=== PATIENT | male | born 1930 | race Caucasian/White ===

== ENCOUNTER 2016-11-20 13:30 | Outpatient (CLI) | payer MEDICARE, OTHER | END 2016-11-20 13:31 | DX: N50.819 Testicular pain, unspecified (principal); N40.1 Benign prostatic hyperplasia with lower urinary tract symptoms ==

== ENCOUNTER 2017-05-19 17:40 | Outpatient (CLI) | payer MEDICARE, OTHER ==
[2017-05-19 13:15] LABS: BASOPHILS # (AUTO) 0.1 10^3/uL (0.0-0.1); BASOPHILS % (AUTO) 1.2 %; EOSINOPHILS # (AUTO) 0.2 10^3/uL (0.0-0.7); EOSINOPHILS % (AUTO) 5.4 %; HCT - HEMATOCRIT 41.9 % (42.0-52.0); HGB - HEMOGLOBIN 13.8 g/dL (14.0-18.0); LYMPHOCYTES # (AUTO) 1.1 10^3/uL (1.5-3.5); LYMPHOCYTES % (AUTO) 27.3 %; MEAN CORPUSCULAR HEMOGLOBIN 30.5 pg (27.0-31.0); MEAN CORPUSCULAR HGB CONC 32.9 g/dL (32.0-36.0); MEAN CORPUSCULAR VOLUME 92.5 fL (80.0-94.0); MEAN PLATELET VOLUME 9.2 fL (7.4-11.4); MONOCYTES # (AUTO) 0.7 10^3/uL (0.0-1.0); MONOCYTES % (AUTO) 16.5 %; NEUTROPHILS % (AUTO) 49.6 %; PSA FREE 0.99 ng/mL (0.16-2.81); RED BLOOD COUNT 4.52 10^6/uL (4.70-6.10); RED CELL DISTRIBUTION WIDTH 13.4 % (12.0-15.0); UNCORRECTED WHITE BLOOD COUNT 4.1 x10^3/uL; WHITE BLOOD COUNT 4.1 x10^3/uL (4.8-10.8)
[2017-05-19 13:16] LABS: PSA TOTAL 4.42 ng/mL (0.000-2.000)
[2017-05-19 13:22] LABS: ALBUMIN/GLOBULIN RATIO 1.2 (1.0-2.2); BILIRUBIN,TOTAL 0.9 mg/dL (0.2-1.0); BUN - BLOOD UREA NITROGEN 15 mg/dL (6-20); CALCIUM 8.9 mg/dL (8.5-10.3); CARBON DIOXIDE - CO2 23 mmol/L (21-32); CHLORIDE 106 mmol/L (101-111); CHOL/HDL RATIO 4.9 (<5.0); CHOLESTEROL 225 mg/dL; CREATININE 1.2 mg/dL (0.6-1.2); GFR - MDRD 57 (>89); GLUCOSE 108 mg/dL (70-100); HDL CHOLESTEROL 46 mg/dL; LDL/HDL RATIO 3.1 (<3.6); SODIUM 137 mmol/L (135-145); TOTAL PROTEIN 7.1 g/dL (6.7-8.2); TRIGLYCERIDES 178 mg/dL; VLDL CHOLESTEROL 36 mg/dL
== END 2017-05-19 17:41 | disposition home or self-care (01) ==
LOC: LAB.WCP 17:40
PROVIDERS: ATTEND Family Medicine
DX: I10 Essential (primary) hypertension (principal)
CPT/HCPCS: 36415; 80053; 80061; 84154; 84443; 85025

== ENCOUNTER 2017-12-29 16:58 | Emergency (ER) | payer MEDICARE, OTHER ==
--- NOTE | 2017-12-29 17:27 | ED Physician Documentation ---
PD HPI CHEST PAIN - Stated complaint Stated Complaint: ELEV BP - Chief complaint Chief Complaint: General - History obtained from History obtained from: Patient - History of Present Illness Timing - onset: How many days ago (he has noted some episodes of trouble breathing, comes and goes. Not related to position nor exertion per se. Has had some baseline level of dyspnea as well. Has had this in the past related to allergies. He took his BP today with the dyspnea and noted it very elevated. Called PMD and referred to ED. He says he has had some increased BP in past 1-2 months, and so resumed his Micardis about 2-3 weeks ago and his BP was doing better. he says last week had 2 times he checked it and was 120-130 systolic. Had one time it was 114 and he felt a little lightheaded with standing while gardening.) Timing - onset during: Light activity Timing - details: Gradual onset, Still present Quality: Tightness. No: Sharp, Tearing, Pain Location: Substernal, Left chest Radiation: Left upper extremity Worsened by: No: Exertion, Inspiration Associated symptoms: Shortness of air, Feeling faint / dizzy. No: Nausea, Vomiting, General Weakness, Palpitations, Cough Similar symptoms before: Has not had sx before Recently seen: Not recently seen PD PAST MEDICAL HISTORY - Past Medical History Cardiovascular: Hypertension, High cholesterol Respiratory: None Neuro: None Endocrine/Autoimmune: None GI: GERD : Benign prostate hypertrophy HEENT: None Psych: None Musculoskeletal: Osteoarthritis, Chronic back pain Derm: None - Past Surgical History General: Appendectomy Ortho: Other HEENT: Cataracts - Present Medications Home Medications: Ambulatory Orders Medication Instructions Recorded Confirmed Aspirin [Aspir 81] 81 mg DAILY 05/15/14 05/15/14 Finasteride 5 mg ORAL DAILY 05/15/14 05/15/14 Esomeprazole Magnesium [Nexium] 40 mg ORAL DAILY 05/16/14 05/16/14 Atenolol [Tenormin] 25 mg PO DAILY 12/04/15 12/04/15 Lisinopril [Zestril] 40 mg PO DAILY 12/04/15 12/04/15 amLODIPine [Norvasc] 5 mg PO DAILY 12/04/15 12/04/15 Albuterol Sulf [Ventolin Hfa 1 - 2 puffs INH Q4HR PRN #1 inhaler 12/29/17 Inhaler] - Allergies Allergies/Adverse Reactions: Allergies Allergy/AdvReac Type Severity Reaction Status Date / Time No Known Drug Allergies Allergy Verified 12/29/17 17:12 - Living Situation Living Situation: reports: With spouse/s.o. Living Arrangement: reports: At home - Social History Does the pt smoke?: No Does the pt drink ETOH?: No Does the pt have substance abuse?: No - Family History Family history: reports: Non contributory PD ED PE NORMAL - Vitals Vital signs reviewed: Yes - General General: Alert and oriented X 3, Well developed/nourished - HEENT HEENT: Ears normal, Moist mucous membranes, Pharynx benign - Neck Neck: Supple, no meningeal sign, No adenopathy, No JVD - Cardiac Cardiac: RRR - Respiratory Respiratory: No: Clear bilaterally (some scattered wheezing noted. ) Results - Vitals Vitals: Vital Signs - 24 hr 12/29/17 12/29/17 12/29/17 17:08 17:19 18:01 Temperature 36.7 C Heart Rate 73 67 Respiratory 18 18 Rate Blood Pressure 224/179 H 216/85 H 185/95 H O2 Saturation 96 12/29/17 12/29/17 12/29/17 18:16 18:37 19:16 Temperature Heart Rate 73 65 66 Respiratory 18 23 20 Rate Blood Pressure 169/99 H 158/89 H 160/82 H O2 Saturation 94 98 96 12/29/17 19:37 Temperature 36.8 C Heart Rate 68 Respiratory 20 Rate Blood Pressure 161/88 H O2 Saturation 97 Oxygen O2 Source Room air - EKG (time done) 17:11 Rate: Rate (enter#) (77) Rhythm: NSR [place]: Normal Intervals: Normal [place] QRS: Normal Ischemia: Normal ST segments. No: ST elevation c/w ischemia, ST depression - Labs Labs: Laboratory Tests 12/29/17 12/29/17 12/29/17 17:40 17:40 17:40 WBC 5.7 RBC 4.81 Hgb 14.5 Hct 43.4 MCV 90.3 MCH 30.1 MCHC 33.4 RDW 13.2 Plt Count 181 MPV 9.2 Neut # 2.6 Lymph # 1.7 [place] # 0.8 Eos # 0.6 Baso # 0.1 Absolute Nucleated RBC 0.00 Nucleated RBC % 0.1 Sodium 135 Potassium 4.0 Chloride 105 Carbon Dioxide 22 Anion Gap 8.0 BUN 21 H Creatinine 1.2 Estimated GFR (MDRD) 57 L Glucose 91 Calcium 9.2 Magnesium 2.2 Total Bilirubin 0.6 AST 29 ALT 18 Alkaline Phosphatase 70 Troponin I < 0.04 B-Natriuretic Peptide Total Protein 7.9 Albumin 4.3 Globulin 3.6 Albumin/Globulin Ratio 1.2 Lipase 21 L 12/29/17 17:40 WBC RBC Hgb Hct MCV MCH MCHC RDW Plt Count MPV Neut # Lymph # [place] # Eos # Baso # Absolute Nucleated RBC Nucleated RBC % Sodium Potassium Chloride Carbon Dioxide Anion Gap BUN Creatinine Estimated GFR (MDRD) Glucose Calcium Magnesium Total Bilirubin AST ALT Alkaline Phosphatase Troponin I B-Natriuretic Peptide 73 Total Protein Albumin Globulin Albumin/Globulin Ratio Lipase - Rads (name of study) chest Radiology: Prelim report reviewed, EMP read contemporaneously (no infiltrates, effusions nor CHF. Somewhat hyperinflated c/w airways disease. ) PD MEDICAL DECISION MAKING - ED course Complexity details: reviewed results, re-evaluated patient (BP was improving without treatment but was still elevated. Given some meds here for it. He says his BP was okay last week couple of times in the 120-130 systolic range. I don' t feel I want to change his usual med. Presume there was secondary process to elevate it today, such as the dyspnea. ), considered differential (sounding like some bronchospastic type process with some dyspnea at baseline and then worse at times, lasting minutes to 1/2 hour or so, then back to baseline. Not exertional per se. He is somewhat poor historian on dates and timeline, but sounds like has had reasonably good BP after resume Micardis 2 weeks ago, (had stopped it as he felt okay and BP was lower at times). Today with BP quite elevated, but he has not taken BP with other dyspnea episodes. Could be intermittent arrhythmias, bronchospastic episodes. Does not sound like CHF nor angina per se. ), d/w patient Departure - Departure Disposition: 01 Home, Self Care Clinical Impression: Elevated blood pressure reading Dyspnea Qualifiers: Dyspnea type: shortness of breath Qualified Code(s): R06.02 - Shortness of breath Condition: Stable Record reviewed to determine appropriate education?: Yes Instructions: ED Dyspnea Shortness of Breath Follow-Up: Arielle Pepper DO [Primary Care Provider] - Prescriptions: Albuterol Sulf [Ventolin Hfa Inhaler] 1 - 2 puffs INH Q4HR PRN #1 inhaler PRN Reason: Shortness Of Air/Wheezing Comments: Continue your Micardis at the current dosing. Check your blood pressure daily or perhaps twice daily for the next week and record it. I think your blood pressure spiraled out of control today with the adrenaline effect of having trouble breathing and was more the result of it rather than the cause. However it can then feedback on itself causing a higher pressure. More so I am wondering if your trouble breathing and episodes of worse breathing might be more lung related and I would suggest trying an albuterol inhaler 2 puffs 4 times a day for the next several days and also at times when you feel you are having more trouble breathing. See if this helps overall with your breathing. Call for a follow-up appointment with your primary care try to see them in about a week. Return if needed. Discharge Date/Time: 12/29/17 19:45
[2017-12-29] MEDS ORDERED: ACETAMINOPHEN 325 MG TABLET PO STA (17:52)
[2017-12-29] MEDS ORDERED: NITROGLYCERIN SL 0.4 MG TABLET SL STA (17:52)
[2017-12-29 17:58] LABS: BASOPHILS # (AUTO) 0.1 10^3/uL (0.0-0.1); BASOPHILS % (AUTO) 1.4 %; EOSINOPHILS # (AUTO) 0.6 10^3/uL (0.0-0.7); EOSINOPHILS % (AUTO) 10.4 %; HGB - HEMOGLOBIN 14.5 g/dL (14.0-18.0); LYMPHOCYTES # (AUTO) 1.7 10^3/uL (1.5-3.5); LYMPHOCYTES % (AUTO) 29.8 %; MEAN CORPUSCULAR HEMOGLOBIN 30.1 pg (27.0-31.0); MEAN CORPUSCULAR HGB CONC 33.4 g/dL (32.0-36.0); MEAN CORPUSCULAR VOLUME 90.3 fL (80.0-94.0); MEAN PLATELET VOLUME 9.2 fL (7.4-11.4); MONOCYTES # (AUTO) 0.8 10^3/uL (0.0-1.0); MONOCYTES % (AUTO) 13.5 %; NEUTROPHILS # (AUTO) 2.6 10^3/uL (1.5-6.6); NEUTROPHILS % (AUTO) 44.9 %; PLT - PLATELET COUNT 181 10^3/uL (130-450); RED BLOOD COUNT 4.81 10^6/uL (4.70-6.10); RED CELL DISTRIBUTION WIDTH 13.2 % (12.0-15.0); WHITE BLOOD COUNT 5.7 x10^3/uL (4.8-10.8)
[2017-12-29 18:10] LABS: ALBUMIN 4.3 g/dL (3.2-5.5); ALBUMIN/GLOBULIN RATIO 1.2 (1.0-2.2); BILIRUBIN,TOTAL 0.6 mg/dL (0.2-1.0); CALCIUM 9.2 mg/dL (8.5-10.3); CREATININE 1.2 mg/dL (0.6-1.2); MAGNESIUM 2.2 mg/dL (1.7-2.8); TOTAL PROTEIN 7.9 g/dL (6.7-8.2)
--- NOTE | 2017-12-29 18:37 | XRAY Report ---
EXAM: CHEST RADIOGRAPHY EXAM DATE: 12/29/2017 06:10 PM. CLINICAL HISTORY: Dyspnea and high blood pressure. COMPARISON: None. TECHNIQUE: 2 views. FINDINGS: Lungs/Pleura: Hyperexpanded with flattened diaphragm and coarse lung markings typical for COPD. No de finite localized infiltrate, consolidation, effusion, or pneumothorax. Mediastinum: Normal overall heart size. Upper lobe vessels not distended. Other: Degenerative changes. IMPRESSION: Chronic findings. No acute disease. [facility] Referring Provider Line: [phone] SITE ID: [id number]
[2017-12-29 19:37] VITALS: BP 161/88
== END 2017-12-29 19:45 | disposition home or self-care (01) ==
LOC: ED 16:58
DX: I10 Essential (primary) hypertension (principal); R06.02 Shortness of breath; E78.00 Pure hypercholesterolemia, unspecified; K21.9 Gastro-esophageal reflux disease without esophagitis; N40.0 Benign prostatic hyperplasia without lower urinary tract symptoms; M19.90 Unspecified osteoarthritis, unspecified site; Z79.82 Long term (current) use of aspirin
CPT/HCPCS: 36415; 71046; 80053; 83690; 83735; 83880; 84484; 85025; 93005; 99283; 99284; A9270

== ENCOUNTER 2018-02-05 13:28 | Emergency (ER) | payer MEDICARE, OTHER ==
--- NOTE | 2018-02-05 13:49 | ED Physician Documentation ---
PD HPI ABD PAIN - Stated complaint Stated Complaint: ABD PAIN - Chief complaint Chief Complaint: Abd Pain - History obtained from History obtained from: Patient - History of Present Illness Timing - onset: How many days ago (2) Timing - duration: Days (2) Timing - details: Abrupt onset (he was shoveling some compost/dirt and placing high on a pile when he slipped and fell against the end of the shovel handle, having his full weight land onto the butt end of the shovel into his epigastric area. Pain deeper and not so sore to the touch. Pain continues similar.), Still present Quality: Aching, Dull, Pain Location: Epigastric Radiation: Lower back Improved by: Laying still, Position Worsened by: Moving, Position. No: Breathing Associated symptoms: Nausea, Loss of appetite. No: Fever, Vomiting, Diarrhea, Dysuria, Near syncope / syncope Similar symptoms before: Has not had sx before Recently seen: Not recently seen Review of Systems Constitutional: denies: Fever, Chills Nose: denies: Rhinorrhea / runny nose, Congestion Throat: denies: Sore throat Cardiac: denies: Chest pain / pressure, Palpitations Respiratory: denies: Cough GI: reports: Abdominal Pain, Nausea. denies: Vomiting, Constipation, Diarrhea : denies: Dysuria, Frequency Skin: denies: Abrasion (s), Laceration (s) Musculoskeletal: denies: Extremity pain, Extremity swelling Neurologic: denies: Generalized weakness, Focal weakness, Numbness, Near syncope PD PAST MEDICAL HISTORY - Past Medical History Cardiovascular: Hypertension, High cholesterol Respiratory: None Neuro: None Endocrine/Autoimmune: None GI: GERD : Benign prostate hypertrophy HEENT: None Psych: None Musculoskeletal: Osteoarthritis, Chronic back pain Derm: None - Past Surgical History General: Appendectomy Ortho: Other HEENT: Cataracts - Present Medications Home Medications: Ambulatory Orders Medication Instructions Recorded Confirmed Aspirin [Aspir 81] 81 mg PO DAILY 05/15/14 02/05/18 Docusate Sodium [Dss] 250 mg PO DAILY #15 capsule 02/05/18 HYDROcod/ACETAM 5/325 [[place] 5/325] 1 tab PO Q6H PRN #20 tablet 02/05/18 Omeprazole 40 mg PO DAILY 02/05/18 02/05/18 Tamsulosin [Flomax] 0.4 mg PO DAILY 02/05/18 02/05/18 Telmisartan [Micardis] 80 mg PO DAILY 02/05/18 02/05/18 - Allergies Allergies/Adverse Reactions: Allergies Allergy/AdvReac Type Severity Reaction Status Date / Time No Known Drug Allergies Allergy Verified 02/05/18 13:49 - Living Situation Living Situation: reports: With spouse/s.o. Living Arrangement: reports: At home - Social History Does the pt smoke?: No Smoking Status: Never smoker Does the pt drink ETOH?: No Does the pt have substance abuse?: No - Family History Family history: reports: Non contributory PD ED PE NORMAL - Vitals Vital signs reviewed: Yes - General General: Alert and oriented X 3, No acute distress, Well developed/nourished ( vigorous appearing for age) - HEENT HEENT: Moist mucous membranes, Pharynx benign - Neck Neck: Supple, no meningeal sign, No adenopathy - Cardiac Cardiac: RRR, No murmur - Respiratory Respiratory: Clear bilaterally - Abdomen Abdomen: Normal bowel sounds, Soft, Non distended, No organomegaly, Other ( tender in epigastric area with slight local guarding, but no percussion, rebound nor referred tenderness. ) - Male Male : Deferred - Rectal Rectal: Deferred - Back Back: No CVA TTP - Derm Derm: Normal color, Warm and dry - Extremities Extremities: No deformity, No tenderness to palpate, No edema, No calf tenderness / cord - Neuro Neuro: Alert and oriented X 3, No motor deficit, Normal speech Results - Vitals Vitals: Vital Signs - 24 hr 02/05/18 02/05/18 02/05/18 13:39 16:52 17:07 Temperature 36.4 C L Heart Rate 99 78 Respiratory 18 16 Rate Blood Pressure 151/83 H 100/60 O2 Saturation 97 95 Oxygen O2 Source Room air - Labs Labs: Laboratory Tests 02/05/18 02/05/18 02/05/18 13:59 13:59 15:20 WBC 11.3 H RBC 4.47 L Hgb 13.7 L Hct 40.6 L MCV 90.9 MCH 30.7 MCHC 33.8 RDW 12.8 Plt Count 180 MPV 8.7 Neut # 8.4 H Lymph # 1.1 L [place] # 1.5 H Eos # 0.2 Baso # 0.1 Absolute Nucleated RBC 0.00 Nucleated RBC % 0.0 Sodium 125 L Potassium 3.7 Chloride 93 L Carbon Dioxide 23 Anion Gap 9.0 BUN 18 Creatinine 1.2 Estimated GFR (MDRD) 57 L Glucose 157 H Calcium 8.5 Total Bilirubin 0.9 AST 23 ALT 14 Alkaline Phosphatase 62 Total Protein 7.4 Albumin 3.8 Globulin 3.6 Albumin/Globulin Ratio 1.1 Lipase 40 Urine Color YELLOW Urine Clarity CLEAR Urine pH 7.0 Ur Specific [place] 1.010 Urine Protein 30 H Urine Glucose (UA) 100 H Urine Ketones NEGATIVE Urine Occult Blood NEGATIVE Urine Nitrite NEGATIVE Urine Bilirubin NEGATIVE Urine Urobilinogen 0.2 (NORMAL) Ur Leukocyte Esterase NEGATIVE Urine RBC 0-5 Urine WBC 0-3 Ur Squamous Epith Cells RARE Squamous Urine Bacteria None Seen Ur Microscopic Review INDICATED Urine Culture Comments NOT INDICATED - Rads (name of study) abd CT with contrast Radiology: Prelim report reviewed, Discussed with rads ([place] and Dr. Huang - pancreatic swelling around tail with edema. Consider occult mass/tumor incidentally picked up, or could be trauma/contusion instead, so suggest repeat imaging to check for resolution. No free fluid seen. ) PD MEDICAL DECISION MAKING - ED course Complexity details: considered differential, d/w patient, d/w audit consultant ( Radiologist, and in house Radiologist Dr. Huang, and also Dr. Maira Mcdowell, Surgery (who suggested repeat imaging soon with U/S, CT or MRI at discretion of Radiology).) Departure - Departure Disposition: 01 Home, Self Care Clinical Impression: Abdominal wall contusion Qualifiers: Encounter type: initial encounter Qualified Code(s): S30.1XXA - Contusion of abdominal wall, initial encounter Pancreatic injury Qualifiers: Encounter type: initial encounter Qualified Code(s): S36.209A - Unspecified injury of unspecified part of pancreas, initial encounter Condition: Stable Record reviewed to determine appropriate education?: Yes Instructions: Abdominal Pain Follow-Up: Tomasa Reis PA [Primary Care Provider] - Prescriptions: Docusate Sodium [Dss] 250 mg PO DAILY #15 capsule HYDROcod/ACETAM 5/325 [[place] 5/325] 1 tab PO Q6H PRN #20 tablet PRN Reason: Pain Comments: You have local swelling of the pancreas which is presumed from the injury. It would be good to see that that improves over the next week or 2. Follow-up with your primary care next Thursday as planned and see if they would arrange an outpatient CT scan or MRI of the abdomen to recheck that. The radiologist I talked to did not feel ultrasound would see it adequately. We want to make sure there was not a coincidental other problem with the pancreas that happened to be found on the scan today. Your pancreas and liver blood tests are good, so does not appear to be infection or inflammation of the pancreas, but just local swelling. You can use Tylenol or ibuprofen if needed for pains. Add hydrocodone if needed for worse pain. Drink lots of fluids. Take a daily stool softener for the next week or 2 so you do not get constipated from the pain medicine. Return sooner if worsening symptoms. Discharge Date/Time: 02/05/18 17:07
[2018-02-05 14:04] LABS: BASOPHILS # (AUTO) 0.1 10^3/uL (0.0-0.1); BASOPHILS % (AUTO) 0.8 %; EOSINOPHILS # (AUTO) 0.2 10^3/uL (0.0-0.7); EOSINOPHILS % (AUTO) 2.1 %; HGB - HEMOGLOBIN 13.7 g/dL (14.0-18.0); LYMPHOCYTES # (AUTO) 1.1 10^3/uL (1.5-3.5); LYMPHOCYTES % (AUTO) 9.6 %; MEAN CORPUSCULAR HEMOGLOBIN 30.7 pg (27.0-31.0); MEAN CORPUSCULAR HGB CONC 33.8 g/dL (32.0-36.0); MEAN CORPUSCULAR VOLUME 90.9 fL (80.0-94.0); MEAN PLATELET VOLUME 8.7 fL (7.4-11.4); MONOCYTES # (AUTO) 1.5 10^3/uL (0.0-1.0); MONOCYTES % (AUTO) 12.9 %; NEUTROPHILS # (AUTO) 8.4 10^3/uL (1.5-6.6); NEUTROPHILS % (AUTO) 74.6 %; PLT - PLATELET COUNT 180 10^3/uL (130-450); RED BLOOD COUNT 4.47 10^6/uL (4.70-6.10); RED CELL DISTRIBUTION WIDTH 12.8 % (12.0-15.0); WHITE BLOOD COUNT 11.3 x10^3/uL (4.8-10.8)
[2018-02-05] MEDS ORDERED: KETOROLAC 60 MG/2 ML VIAL IVP STA (14:09)
[2018-02-05] MEDS ORDERED: ACETAMINOPHEN 325 MG TABLET PO STA (14:11)
[2018-02-05 14:16] LABS: ALBUMIN 3.8 g/dL (3.2-5.5); ALBUMIN/GLOBULIN RATIO 1.1 (1.0-2.2); BILIRUBIN,TOTAL 0.9 mg/dL (0.2-1.0); CALCIUM 8.5 mg/dL (8.5-10.3); CREATININE 1.2 mg/dL (0.6-1.2); TOTAL PROTEIN 7.4 g/dL (6.7-8.2)
[2018-02-05] MEDS ORDERED: IOPAMIDOL-300 100 ML VIAL ONE (14:28)
[2018-02-05] MEDS ORDERED: IOPAMIDOL-300 100 ML VIAL IVP ONE (14:53)
--- NOTE | 2018-02-05 15:22 | CT Preliminary Report ---
Exam: CT ABDOMEN/PELVIS W/ IMPRESSION: 1. Chronic lung disease. 2. No acute posttraumatic abnormality. 3. 3.6 x 2.5 x 3.0 cm mass or focal pancreatitis involving the pancreatic tail. Adjacent edema and ad enopathy. Findings not likely due to recent trauma unless the focal trauma was in the left upper quad rant rather then the right upper quadrant as per history. 4. Significant retroperitoneal and periportal adenopathy. This is worrisome for metastatic disease. 5. Colonic diverticulosis. [facility] SITE ID: [id number]
[2018-02-05 15:31] LABS: BILIRUBIN,URINE NEGATIVE (NEGATIVE); GLUCOSE, URINE (UA) 100 mg/dL (NEGATIVE); KETONES,URINE (UA) NEGATIVE (NEGATIVE); LEUKOCYTE ESTERASE, URINE NEGATIVE (NEGATIVE); NITRITE,URINE NEGATIVE (NEGATIVE); OCCULT BLOOD,URINE NEGATIVE (NEGATIVE); PROTEIN,URINE 30 mg/dL (NEGATIVE); UROBILINOGEN,URINE 0.2 (NORMAL) E.U./dL (NORMAL)
--- NOTE | 2018-02-05 15:32 | CT Report ---
EXAM: CT ABDOMEN AND PELVIS EXAM DATE: 02/05/2018 02:54 PM. CLINICAL HISTORY: Prior appendectomy. Struck in right upper abdomen with shovel handle 3 days ago. Pe rsistent pain since then. COMPARISONS: 02/09/2007. TECHNIQUE: Routine helical CT imaging was performed through the abdomen and pelvis. IV contrast: ISOV UE 300 100mL. Enteric contrast: No. Reconstructions: Coronal and sagittal. In accordance with CT protocol optimization, one or more of the following dose reduction techniques w ere utilized for this exam: automated exposure control, adjustment of mA and/or KV based on patient s ize, or use of iterative reconstructive technique. FINDINGS: Lung Bases: Emphysematous changes. Liver: Increased caliber of a 6 mm low-density left lobe liver, previously 3 mm, consistent with cyst s. Liver is otherwise unremarkable. Gallbladder/Bile Ducts: Unremarkable. Spleen: Normal. Pancreas: Interval development of a 3.6 x 2.5 x 3 cm inhomogeneous mass or focal pancreatic phlegmon at the tail. 3 cm rim of edema surrounding this region as well as focal lymph nodes, best appreciated on axial image 27. Moderate to marked fatty atrophy of the rest of the pancreas. No pancreatic duct dilatation. Adrenal Glands: Normal. Kidneys: Normal. Small bilateral peripelvic cysts. No masses or hydronephrosis. Peritoneal Cavity/Bowel: Diverticuli off the colon. Large and small bowel normal caliber. Multiple new mild and moderately enlarged retroperitoneal lymph nodes and periportal lymph nodes. No free air. Appendectomy. Pelvic Organs: 5 x 3 cm non-entrapped right fat filled inguinal hernia. Vasculature: No aneurysms or other significant abnormality. Bones: No significant abnormality. No bony metastatic disease. Other: None. IMPRESSION: 1. Chronic lung disease. 2. No acute posttraumatic abnormality. 3. 3.6 x 2.5 x 3.0 cm mass or focal pancreatitis involving the pancreatic tail. Adjacent edema and ad enopathy. Findings not likely due to recent trauma unless the focal trauma was in the left upper quad rant rather then the right upper quadrant as per history. 4. Significant retroperitoneal and periportal adenopathy. This is worrisome for metastatic disease. 5. Colonic diverticulosis. [facility] Referring Provider Line: [phone] SITE ID: [id number]
[2018-02-05 16:00] LABS: CLARITY,URINE CLEAR (CLEAR)
[2018-02-05 16:03] LABS: BACTERIA,URINE None Seen /HPF (None Seen); RBC,URINE 0-5 /HPF (0-5); SQUAMOUS EPITHELIAL CELL,UR RARE Squamous (<= Few)
[2018-02-05] MEDS ORDERED: MORPHINE 10 MG/ML VIAL IVP STA (16:25)
[2018-02-05] MEDS ORDERED: ONDANSETRON 4 MG/2 ML VIAL IVP STA (16:25)
[2018-02-05 17:08] VITALS: BP 100/60
== END 2018-02-05 17:07 | disposition home or self-care (01) ==
LOC: ED 13:28
DX: I10 Essential (primary) hypertension (principal); Z79.82 Long term (current) use of aspirin; S30.1XXA Contusion of abdominal wall, initial encounter; S36.229A Contusion of unspecified part of pancreas, initial encounter; W27.1XXA Contact with garden tool, initial encounter; Y93.H1 Activity, digging, shoveling and raking
CPT/HCPCS: 36415; 74177; 80053; 81001; 83690; 85025; 96374; 96375; 99283; 99284; A9270; Q9967; 81003; 87086

== ENCOUNTER 2018-02-15 11:50 | Outpatient (CLI) | payer MEDICARE, OTHER ==
[2018-02-15] MEDS ORDERED: IOPAMIDOL-300 100 ML VIAL ONE (12:05)
--- NOTE | 2018-02-15 13:39 | CT Report ---
CT ABDOMEN WITH CONTRAST: 02/15/2018 CLINICAL INDICATION: Possible pancreatic mass on previous CT. TECHNIQUE: Axial CT images of the abdomen were obtained in early arterial and portal venous phase of enhancement, with 100 mL Isovue 300 intravenously. COMPARISON: CT 02/05/2018. FINDINGS: There has been interval increase in inflammation and phlegmon around the tail of the pancreas, with interval increase in prominence of the pancreatic tail. An underlying mass cannot be excluded, but this may still represent focal pancreatitis. Correlation with enzymatic evidence of pancreatitis is recommended. If pancreatic enzymes are normal, consider biopsy to exclude pancreatic malignancy. Adenopathy in the periportal region and retroperitoneum persists, stable. Tiny cysts in the anterior left lobe of the liver and lateral right lobe of the liver are stable. Hiatal hernia is again noted. The gallbladder is not dilated. The kidneys demonstrate parapelvic cysts. The spleen appears unremarkable. No bowel dilatation, free gas, or free fluid is present. Osseous structures demonstrate degenerative changes. Limited evaluation of the lung bases demonstrates atelectasis. IMPRESSION: INTERVAL INCREASE IN INFLAMMATORY CHANGES AROUND THE TAIL OF THE PANCREAS, WITH INCREASED PROMINENCE OF THE TAIL OF THE PANCREAS. IF THE PANCREATIC ENZYMES ARE NORMAL, CONSIDER BIOPSY TO EXCLUDE A PANCREATIC MALIGNANCY. STABLE PERIPORTAL AND RETROPERITONEAL ADENOPATHY. STABLE HIATAL HERNIA. CT DOSE REDUCTION STATEMENT In accordance with CT protocol optimization, one or more of the following dose reduction techniques were utilized for this exam: automated exposure control, adjustment of mA and/or KV based on patient size, or use of iterative reconstructive technique. TD: 02/15/2018 13:38
[2018-02-15] MEDS ORDERED: IOPAMIDOL-300 100 ML VIAL IVP ONE (14:48)
== END 2018-02-15 11:51 | disposition home or self-care (01) ==
LOC: DI 11:50
PROVIDERS: ATTEND Physician Assistant
DX: K86.89 Other specified diseases of pancreas (principal); K44.9 Diaphragmatic hernia without obstruction or gangrene
CPT/HCPCS: 74160; Q9967

== ENCOUNTER 2018-02-16 10:25 | Outpatient (CLI) | payer MEDICARE, OTHER ==
[2018-02-16 12:44] LABS: BASOPHILS # (AUTO) 0.1 10^3/uL (0.0-0.1); BASOPHILS % (AUTO) 1.1 %; EOSINOPHILS # (AUTO) 0.6 10^3/uL (0.0-0.7); EOSINOPHILS % (AUTO) 7.2 %; HGB - HEMOGLOBIN 13.2 g/dL (14.0-18.0); LYMPHOCYTES # (AUTO) 1.5 10^3/uL (1.5-3.5); LYMPHOCYTES % (AUTO) 19.7 %; MEAN CORPUSCULAR HEMOGLOBIN 30.5 pg (27.0-31.0); MEAN CORPUSCULAR HGB CONC 33.4 g/dL (32.0-36.0); MEAN CORPUSCULAR VOLUME 91.2 fL (80.0-94.0); MEAN PLATELET VOLUME 8.4 fL (7.4-11.4); MONOCYTES # (AUTO) 0.8 10^3/uL (0.0-1.0); MONOCYTES % (AUTO) 10.3 %; NEUTROPHILS # (AUTO) 4.7 10^3/uL (1.5-6.6); NEUTROPHILS % (AUTO) 61.7 %; PLT - PLATELET COUNT 301 10^3/uL (130-450); RED BLOOD COUNT 4.33 10^6/uL (4.70-6.10); RED CELL DISTRIBUTION WIDTH 12.3 % (12.0-15.0); WHITE BLOOD COUNT 7.7 x10^3/uL (4.8-10.8)
[2018-02-16 13:07] LABS: ALBUMIN 3.6 g/dL (3.2-5.5); ALBUMIN/GLOBULIN RATIO 0.9 (1.0-2.2); BILIRUBIN,TOTAL 0.6 mg/dL (0.2-1.0); CALCIUM 8.9 mg/dL (8.5-10.3); CREATININE 1.4 mg/dL (0.6-1.2); TOTAL PROTEIN 7.4 g/dL (6.7-8.2)
[2018-02-16 13:48] LABS: PSA FREE 1.35 ng/mL (0.16-2.81)
[2018-02-16 13:49] LABS: PSA TOTAL 9.19 ng/mL (0.000-2.000)
== END 2018-02-16 10:26 | disposition home or self-care (01) ==
LOC: LAB.WCP 10:25
PROVIDERS: ATTEND Physician Assistant
DX: Z00.00 Encounter for general adult medical examination without abnormal findings (principal); K86.89 Other specified diseases of pancreas
CPT/HCPCS: 36415; 80053; 82150; 83690; 84154; 85025

== ENCOUNTER 2018-09-10 07:49 | Outpatient (CLI) | payer MEDICARE, OTHER ==
[2018-09-10 12:58] LABS: HGB - HEMOGLOBIN 13.6 g/dL (14.0-18.0); MEAN CORPUSCULAR HEMOGLOBIN 30.6 pg (27.0-31.0); MEAN CORPUSCULAR HGB CONC 33.8 g/dL (32.0-36.0); MEAN CORPUSCULAR VOLUME 90.6 fL (80.0-94.0); MEAN PLATELET VOLUME 9.7 fL (7.4-11.4); RED BLOOD COUNT 4.45 10^6/uL (4.70-6.10); RED CELL DISTRIBUTION WIDTH 13.7 % (12.0-15.0); WHITE BLOOD COUNT 4.5 x10^3/uL (4.8-10.8)
[2018-09-10 13:13] LABS: CALCIUM 8.7 mg/dL (8.5-10.3); CREATININE 1.3 mg/dL (0.6-1.2)
== END 2018-09-10 23:59 | disposition home or self-care (01) ==
LOC: LAB.WCP 07:49
PROVIDERS: ATTEND Family Medicine
DX: I10 Essential (primary) hypertension (principal); R97.20 Elevated prostate specific antigen [PSA]
CPT/HCPCS: 36415; 80048; 84153; 85027

== ENCOUNTER 2019-03-02 12:12 | Outpatient (CLI) | payer MEDICARE, OTHER | END 2019-03-02 12:13 | disposition home or self-care (01) | LOC: DI 12:12 | PROVIDERS: ATTEND Family Medicine | DX: Z53.9 Procedure and treatment not carried out, unspecified reason (principal) ==

== ENCOUNTER 2019-03-29 08:00 | Outpatient (CLI) | payer MEDICARE, OTHER ==
[2019-03-29 19:30] LABS: ALBUMIN 3.8 g/dL (3.2-5.5); ALKALINE PHOSPHATASE 63 IU/L (42-121); ALT ALANINE AMINOTRANSFERASE 17 IU/L (10-60); AST ASPARTATE AMINOTRANSFERASE 29 IU/L (10-42); BILIRUBIN,TOTAL 0.6 mg/dL (0.2-1.0); TOTAL PROTEIN 7.4 g/dL (6.7-8.2)
[2019-03-29 19:49] LABS: BILIRUBIN,DIRECT < 0.1 mg/dL (0.1-0.5)
== END 2019-03-29 08:01 | disposition home or self-care (01) ==
LOC: LAB.WCP 08:00
PROVIDERS: ATTEND Physician Assistant Medical
DX: B35.1 Tinea unguium (principal)
CPT/HCPCS: 36415; 80076